=== PATIENT | female | born 1955 | race Caucasian/White ===

== ENCOUNTER 2020-10-12 16:06 | Inpatient (IN) ==
[2020-10-12] MEDS ORDERED: NS 0.9% 1000 ml BAG 1,000 ML IV ONE (17:13)
[2020-10-12 18:11] LABS: ABS Basophils 0.1 10^3/ul (0-0.2); ABS Eosinophils 0.3 10^3/ul (0-0.6); ABS Lymphocytes 2.4 10^3/ul (1.0-4.8); ABS Monocytes 0.8 10^3/ul (0-0.8); Eosinophil % 2.8 %; Hematocrit 46 % (35-47); Hemoglobin 15.2 g/dL (12.0-16.0); Lymphocyte % 22.3 %; Mean Corpuscular HGB Conc 33 g/dL (31-36); Mean Corpuscular Hemoglobin 27 pg (27-31); Mean Corpuscular Volume 82 fL (80-97); Mean Platelet Volume 8.1 fL (7.4-10.4); Platelet Count 323 10^3/uL (150-450); Red Blood Count 5.54 10^6 /uL (3.70-4.87); Red Cell Distribution Width 16 % (10-15); White Blood Count 10.6 10^3/uL (3.5-10.8)
[2020-10-12 18:25] LABS: INR 1.03 (0.82-1.09)
[2020-10-12 18:30] LABS: Albumin 4.2 g/dL (3.2-5.2); BUN/Creatinine Ratio 17.5 (8-20); Calcium 9.6 mg/dL (8.6-10.3); EGFR African American 69.5 (>60); EGFR Non-African American 57.5 (>60); Globulin 4.4 g/dL (2-4); Magnesium 2.1 mg/dL (1.9-2.7); Potassium 3.5 mmol/L (3.5-5.0); Total Bilirubin 0.3 mg/dL (0.2-1.0); Total Protein 8.6 g/dL (6.4-8.9)
[2020-10-12 18:32] LABS: Troponin I 0.01 ng/mL (<0.03)
[2020-10-12] MEDS ORDERED: Labetalol IV 5 MG/ML 20 ml VIAL IV PUSH ONE (18:37)
[2020-10-12 19:07] LABS: TSH Ultra Thyroid Stim Horm 0.98 mcIU/mL (0.34-5.60)
[2020-10-12 21:16] LABS: HDL Cholesterol 58.9 mg/dL
[2020-10-12] MEDS: fentaNYL PATCH 75 MCG/HR 1 PATCH TRANSDERM SCH (23:02)
[2020-10-12] MEDS: prednisoLONE 1% OPHTH.SUSP 5 ML OPHTH.SUSP RIGHT EYE SCH (23:05)
[2020-10-12] MEDS: Enoxaparin 40 MG/0.4 ML SYR SUBCUT SCH (23:06)
[2020-10-13] MEDS: Cholecalciferol (VIT D3) 1,000 unit TAB PO SCH (09:52)
[2020-10-13] MEDS: prednisoLONE 1% OPHTH.SUSP 5 ML OPHTH.SUSP RIGHT EYE SCH ×3 (09:54→20:17)
[2020-10-13] MEDS ORDERED: Regadenoson 0.4 MG/5 ML SYRINGE ONE (10:36)
[2020-10-13] MEDS ORDERED: Aminophylline 25 MG/ML VIAL ONE (10:36)
[2020-10-13] MEDS ORDERED: Lorazepam PYXIS KEY ONE ×2 (10:38→11:15)
[2020-10-13] MEDS ORDERED: LORazepam 2 mg VIAL 1 ml ONE (10:39)
[2020-10-13] MEDS ORDERED: Al Hydrox/Mg Hydrox/Simet LIQ 30 ML UDC PO ONE (15:08)
[2020-10-13] MEDS: Nitroglycerin 0.3 mg TAB SL PRN ×4 (16:39→21:35)
[2020-10-13] MEDS: Enoxaparin 40 MG/0.4 ML SYR SUBCUT SCH (20:17)
[2020-10-13] MEDS: Mometasone 220 MCG MDI INH SCH ×2 (20:28)
[2020-10-14] MEDS: fentaNYL Patch Check Q Shift NOTE FOLLOW UP SCH ×2 (06:53→18:54)
[2020-10-14] MEDS: Cholecalciferol (VIT D3) 1,000 unit TAB PO SCH (10:12)
[2020-10-14] MEDS: prednisoLONE 1% OPHTH.SUSP 5 ML OPHTH.SUSP RIGHT EYE SCH ×3 (10:13→21:05)
[2020-10-14] MEDS: Nitroglycerin 0.3 mg TAB SL PRN ×7 (12:33→23:40)
[2020-10-14 13:45] LABS: C Reactive Protein 6.9 mg/L (<8.01)
[2020-10-14 16:45] LABS: ABS Basophils 0.1 10^3/ul (0-0.2); ABS Eosinophils 0.4 10^3/ul (0-0.6); ABS Lymphocytes 2.4 10^3/ul (1.0-4.8); ABS Monocytes 0.6 10^3/ul (0-0.8); ABS Neutrophils 4.7 10^3/ul (1.5-7.7); Hematocrit 40 % (35-47); Hemoglobin 13.1 g/dL (12.0-16.0); Lymphocyte % 29.2 %; Mean Corpuscular HGB Conc 33 g/dL (31-36); Mean Corpuscular Hemoglobin 27 pg (27-31); Mean Corpuscular Volume 82 fL (80-97); Platelet Count 269 10^3/uL (150-450); Red Blood Count 4.81 10^6 /uL (3.70-4.87); Red Cell Distribution Width 15 % (10-15); White Blood Count 8.2 10^3/uL (3.5-10.8)
[2020-10-14 16:52] LABS: Activated Partial Thrombo Time 34.4 seconds (26.0-38.0); INR 0.97 (0.82-1.09)
[2020-10-14 17:10] LABS: BUN/Creatinine Ratio 19.8 (8-20); Calcium 9.2 mg/dL (8.6-10.3); EGFR African American 79.9 (>60)
[2020-10-14] MEDS: Mometasone 220 MCG MDI INH SCH (20:07)
[2020-10-14] MEDS: fentaNYL PATCH 75 MCG/HR 1 PATCH TRANSDERM SCH (20:58)
[2020-10-15] MEDS ORDERED: NS 0.9% 1000 ml BAG 1,000 ML IV SCH ×2 (05:00→10:15)
[2020-10-15] MEDS: fentaNYL Patch Check Q Shift NOTE FOLLOW UP SCH ×2 (07:24→18:46)
[2020-10-15] MEDS: Cholecalciferol (VIT D3) 1,000 unit TAB PO SCH (07:27)
[2020-10-15] MEDS: prednisoLONE 1% OPHTH.SUSP 5 ML OPHTH.SUSP RIGHT EYE SCH ×3 (07:28→20:24)
[2020-10-15] MEDS ORDERED: VERAPAMIL 2.5 MG/ML 2 ML VIAL ** 5 mg/2 ml ONE (07:45)
[2020-10-15] MEDS ORDERED: Midazolam 5 mg/5 ml VIAL 1 mg/ml 5 ml VIAL (5 mg) ONE (07:45)
[2020-10-15] MEDS ORDERED: fentaNYL 100 mcg/2 ml 50 MCG/ML VIAL ONE (07:45)
[2020-10-15] MEDS ORDERED: Heparin 1,000 UNIT/ML 10 ml (10,000 UNITS) CATHLAB/DIALYSIS ONE (07:45)
[2020-10-15] MEDS ORDERED: Iohexol 350 (CONTRAST) 200 ML MDV IV ONE ×2 (07:46→08:21)
[2020-10-15] MEDS ORDERED: nitroGLYCERIN DRIP 25,000 MCG/250 ML BTL ONE (07:46)
[2020-10-15] MEDS ORDERED: Heparin 2 UNITS/ML 1000 mls 2,000 ML IV ONE (07:46)
[2020-10-15] MEDS ORDERED: Lidocaine 1% VIAL 10 MG/ML VIAL ONE (07:46)
[2020-10-15 13:57] LABS: ABS Basophils 0.1 10^3/ul (0-0.2); ABS Eosinophils 0.4 10^3/ul (0-0.6); ABS Lymphocytes 2.6 10^3/ul (1.0-4.8); ABS Monocytes 0.5 10^3/ul (0-0.8); Eosinophil % 3.9 %; Hematocrit 38 % (35-47); Hemoglobin 12.7 g/dL (12.0-16.0); Lymphocyte % 27.4 %; Mean Corpuscular HGB Conc 34 g/dL (31-36); Mean Corpuscular Hemoglobin 27 pg (27-31); Mean Corpuscular Volume 81 fL (80-97); Mean Platelet Volume 7.8 fL (7.4-10.4); Platelet Count 278 10^3/uL (150-450); Red Blood Count 4.69 10^6 /uL (3.70-4.87); Red Cell Distribution Width 15 % (10-15); White Blood Count 9.6 10^3/uL (3.5-10.8)
[2020-10-15 14:16] LABS: BUN/Creatinine Ratio 14.3 (8-20); Calcium 8.7 mg/dL (8.6-10.3); EGFR African American 74.8 (>60); EGFR Non-African American 61.9 (>60); Magnesium 1.8 mg/dL (1.9-2.7); Potassium 3.7 mmol/L (3.5-5.0)
[2020-10-15] MEDS ORDERED: Magnesium Sulfate IV 1GM/100ML 1 GM/100 ML BAG IV ONE (15:59)
[2020-10-15] MEDS: Mometasone 220 MCG MDI INH SCH (19:44)
[2020-10-16 06:36] LABS: Albumin 3.4 g/dL (3.2-5.2); Calcium 8.9 mg/dL (8.6-10.3); Total Bilirubin 0.4 mg/dL (0.2-1.0)
[2020-10-16 06:42] LABS: Albumin/Globulin Ratio 0.9 (1-3); EGFR African American 93.5 (>60); EGFR Non-African American 77.3 (>60); Globulin 3.6 g/dL (2-4)
[2020-10-16] MEDS: fentaNYL Patch Check Q Shift NOTE FOLLOW UP SCH (06:50)
[2020-10-16] MEDS: Cholecalciferol (VIT D3) 1,000 unit TAB PO SCH (07:47)
[2020-10-16] MEDS: prednisoLONE 1% OPHTH.SUSP 5 ML OPHTH.SUSP RIGHT EYE SCH ×2 (07:53→13:44)
[2020-10-16 12:54] VITALS: BP 162/81
== END 2020-10-16 14:41 | disposition home or self-care (01) | DRG 287 ==
LOC: ED 16:06 → MEDTELE 16:06 → OBSVTOIN 19:40 → MEDTELE 22:54
PROVIDERS: ADMIT Hospitalist; ATTEND Internal Medicine

== ENCOUNTER 2023-11-01 09:27 | Observation (INO) ==
[2023-11-01 10:14] LABS: ABS Lymphocytes 0.5 10^3/uL (1.0-4.8); ABS Monocytes 0.8 10^3/uL (0.0-0.9); ABS Neutrophils 4.3 10^3/uL (1.5-7.6); ABS Nucleated RBC 0.01 10^3/ul; Hematocrit 42.9 % (35-45); Hemoglobin 14.4 g/dL (11.5-14.3); Lymphocyte % 8.3 %; Mean Corpuscular Hemoglobin 28.3 pg (27-33); Mean Corpuscular Hgb Conc 33.6 g/dL (31-36); Mean Corpuscular Volume 84.2 fL (80-97); Mean Platelet Volume 8.4 fL (7.5-11.2); Nucleated Red Blood Cells % 0.1 %/100WBC (0.0-0.8); Platelet Count 245 10^3/uL (150-450); Red Blood Count 5.09 10^6/uL (3.63-4.92); Red Cell Distribution Width 15.2 % (12-17); White Blood Count 5.5 10^3/uL (3.8-11.8)
[2023-11-01 10:24] LABS: INR 1.01 (0.83-1.13)
[2023-11-01 10:41] LABS: ALT 10 U/L (7-52); Albumin 4.2 g/dL (3.2-5.2); Albumin/Globulin Ratio 1.1 (1-3); Alkaline Phosphatase 51 U/L (35-149); Anion Gap 12 mmol/L (2-16); Blood Urea Nitrogen 15 mg/dL (6-24); CO2 Carbon Dioxide 23 mmol/L (22-32); Calcium 8.7 mg/dL (8.6-10.3); Chloride 99 mmol/L (101-111); Creatinine, Serum 0.98 mg/dL (0.51-0.95); Glucose 165 mg/dL (70-100); Sodium 134 mmol/L (135-145); Total Bilirubin 0.5 mg/dL (0.2-1.0); Total Protein 8.2 g/dL (6.4-8.9); eGFR CKD-EPI 62.5 (>60)
[2023-11-01 10:43] LABS: High Sens Troponin Baseline 7 pg/mL (<15)
[2023-11-01 10:51] LABS: Creatine Kinase 81 U/L (10-223)
[2023-11-01] MEDS ORDERED: Iohexol 350 (CONTRAST) 500 ML MDV IV ONE (11:07)
[2023-11-01 11:26] LABS: Magnesium 1.9 mg/dL (1.9-2.7); Potassium Redraw 3.7 mmol/L (3.5-5.0)
[2023-11-01] MEDS ORDERED: Nitro 2% OINT (Nitroglycerin) 1 INCH/PAK TOPICAL ONE (12:08)
[2023-11-01 14:57] LABS: Cholesterol 238 mg/dL; HDL Cholesterol 69.3 mg/dL; LDL Cholesterol 151 mg/dL; Triglycerides 87 mg/dL
[2023-11-01 16:25] LABS: TSH Ultra Thyroid Stim Horm 0.14 mcIU/mL (0.34-5.60)
[2023-11-01] MEDS: Enoxaparin 40 MG/0.4 ML SYR SUBCUT SCH (16:51)
[2023-11-01] MEDS: fentaNYL Patch Check Q Shift NOTE FOLLOW UP SCH (19:09)
[2023-11-01] MEDS ORDERED: Metoprolol Tartrate 5 mg VIAL 5 ml VIAL (1 mg/ml) IV ONE (19:49)
[2023-11-01] MEDS: fentaNYL PATCH 12 MCG/HR 1 PATCH TRANSDERM SCH (19:59)
[2023-11-01 20:43] LABS: Free T4 0.99 ng/dL (0.61-1.12)
[2023-11-01] MEDS ORDERED: fentaNYL PATCH 50 MCG/HR 1 PATCH TRANSDERM SCH (21:00)
[2023-11-01 21:57] LABS: High Sensitivity Troponin 1 Hr 9 pg/mL (<15)
[2023-11-01 23:50] LABS: High Sensitivity Troponin 3 Hr 9 pg/mL (<15)
[2023-11-02] MEDS ORDERED: Acetaminophen IV 1 GM/100ML 1,000 MG/100 ML BAG IV ONE (05:37)
[2023-11-02] MEDS: fentaNYL Patch Check Q Shift NOTE FOLLOW UP SCH ×2 (07:23→18:48)
[2023-11-02 10:50] LABS: Calcium 8.3 mg/dL (8.6-10.3); Creatinine, Serum 0.94 mg/dL (0.51-0.95); Magnesium 1.9 mg/dL (1.9-2.7); Potassium 3.8 mmol/L (3.5-5.0); eGFR CKD-EPI 65.7 (>60)
[2023-11-02 11:44] LABS: ABS Basophils 0.1 10^3/uL (0.0-0.1); ABS Lymphocytes 0.7 10^3/uL (1.0-4.8); ABS Monocytes 1.1 10^3/uL (0.0-0.9); ABS Neutrophils 7.5 10^3/uL (1.5-7.6); ABS Nucleated RBC 0.01 10^3/ul; Hematocrit 38.2 % (35-45); Lymphocyte % 7.1 %; Mean Corpuscular Hemoglobin 28.3 pg (27-33); Mean Corpuscular Volume 83.2 fL (80-97); Mean Platelet Volume 8.8 fL (7.5-11.2); Nucleated Red Blood Cells % 0.1 %/100WBC (0.0-0.8); Platelet Count 197 10^3/uL (150-450); Red Cell Distribution Width 14.9 % (12-17); White Blood Count 9.3 10^3/uL (3.8-11.8)
[2023-11-02] MEDS ORDERED: Regadenoson 0.4 MG/5 ML SYRINGE ONE (12:44)
[2023-11-02] MEDS: Enoxaparin 40 MG/0.4 ML SYR SUBCUT SCH (15:07)
[2023-11-02] MEDS: fentaNYL PATCH 12 MCG/HR 1 PATCH TRANSDERM SCH (16:20)
[2023-11-03 06:15] LABS: ABS Neutrophils 16.7 10^3/uL (1.5-7.6); ABS Nucleated RBC 0.02 10^3/ul; Hematocrit 39.7 % (35-45); Hemoglobin 13.2 g/dL (11.5-14.3); Lymphocyte % 5.1 %; Mean Corpuscular Hemoglobin 27.6 pg (27-33); Mean Corpuscular Hgb Conc 33.2 g/dL (31-36); Mean Corpuscular Volume 83.3 fL (80-97); Mean Platelet Volume 8.9 fL (7.5-11.2); Nucleated Red Blood Cells % 0.1 %/100WBC (0.0-0.8); Platelet Count 214 10^3/uL (150-450); Red Blood Count 4.76 10^6/uL (3.63-4.92); Red Cell Distribution Width 14.5 % (12-17); White Blood Count 18.7 10^3/uL (3.8-11.8)
[2023-11-03 06:34] LABS: Calcium 8.7 mg/dL (8.6-10.3); Creatinine, Serum 0.86 mg/dL (0.51-0.95); Potassium 3.4 mmol/L (3.5-5.0); eGFR CKD-EPI 73.1 (>60)
[2023-11-03] MEDS: fentaNYL Patch Check Q Shift NOTE FOLLOW UP SCH (08:52)
[2023-11-03] MEDS ORDERED: fentaNYL PATCH 12 MCG/HR 1 PATCH TRANSDERM SCH (12:00)
[2023-11-03] MEDS: Enoxaparin 40 MG/0.4 ML SYR SUBCUT SCH (15:34)
[2023-11-03 18:20] VITALS: BP 157/83
[2023-11-03] MEDS ORDERED: fentaNYL Patch Check Q Shift NOTE FOLLOW UP SCH (19:00)
== END 2023-11-03 18:02 | disposition home or self-care (01) ==
LOC: ED 09:27 → EDHOLD 09:27 → SUATTDRO 13:10 → MEDTELE 18:24
PROVIDERS: ADMIT Internal Medicine; ATTEND Hospitalist